=== PATIENT | female | born 1995 | race Two or more races ===

== ENCOUNTER 2020-04-29 16:32 | Observation (INO) | payer MEDICAID | END 2020-04-29 17:55 | disposition home or self-care (01) | LOC: 8 EST LDRP 16:32 | PROVIDERS: ADMIT Specialist; ATTEND Specialist | DX: O62.9 Abnormality of forces of labor, unspecified (principal); Z3A.33 33 weeks gestation of pregnancy | CPT/HCPCS: 99281; G0378 ==